=== PATIENT | female | born 1965 | race Caucasian/White ===

== ENCOUNTER 2022-08-18 16:14 | Emergency (ER) | payer OTHER ==
[~2022-08-18] VITALS: Ht 177.8 cm; Wt 87.0 kg
[2022-08-18] MEDS ORDERED: LEXA1TAB2 PO (16:36)
[2022-08-18] MEDS ORDERED: LOSA100T45 PO (16:36)
[2022-08-18] MEDS ORDERED: FAMC500T PO (16:36)
[2022-08-18] MEDS ORDERED: PERC5TAB12 PO (18:19)
[2022-08-18] MEDS ORDERED: OXYCODONE/APAP 5MG/325MG(HOME DOSE PACK) PO ONE (18:20)
[2022-08-18] MEDS ORDERED: PERCOCET 5MG/325MG TAB PO ONE (18:20)
[2022-08-18 19:05] VITALS: BP 141/74
[2022-08-20] MEDS ORDERED: LEXA1TAB2 PO (11:18)
[2022-08-20] MEDS ORDERED: ARIP1TAB4 PO (11:18)
== END 2022-08-18 19:48 | disposition home or self-care (01) ==
LOC: M ED 16:14
DX: S42.202A Unspecified fracture of upper end of left humerus, initial encounter for closed fracture (principal); W00.0XXA Fall on same level due to ice and snow, initial encounter; Y92.89 Other specified places as the place of occurrence of the external cause; Y93.89 Activity, other specified; I10 Essential (primary) hypertension; F17.200 Nicotine dependence, unspecified, uncomplicated; Z79.899 Other long term (current) drug therapy; Z88.2 Allergy status to sulfonamides

== ENCOUNTER 2022-08-21 10:23 | Day surgery (SDC) | payer OTHER ==
[~2022-08-21] VITALS: Ht 177.8 cm; Wt 80.9 kg
[~2022-08-21 10:23] MED LIST: ARIP1TAB4 PO; FAMC500T PO; LEXA1TAB2 PO; LOSA100T45 PO; PERC5TAB12 PO
[2022-08-21] MEDS ORDERED: LR 1,000 ML IV SCH ×2 (10:35→15:40)
[2022-08-21] MEDS ORDERED: LIDOCAINE 2% 100MG/5ML SDV (FOR ANES.) As Ordered ONE (11:02)
[2022-08-21] MEDS ORDERED: propofoL 200 MG/20 ML VIAL As Ordered ONE (11:02)
[2022-08-21] MEDS ORDERED: fentaNYL 100 MCG/2 ML INJECTION As Ordered ONE (11:02)
[2022-08-21] MEDS ORDERED: MIDAZOLAM INJ 2MG/2ML VIAL As Ordered ONE (11:02)
[2022-08-21] MEDS ORDERED: ROPIvacaine 0.5% 30ML VIAL PN ONE (12:35)
[2022-08-21] MEDS ORDERED: LIDOCAINE 1% SDV 5ML VIAL PN ONE (12:35)
[2022-08-21] MEDS: MIDAZOLAM INJ 2MG/2ML VIAL IV PRN ×2 (12:51→12:57)
[2022-08-21] MEDS: fentaNYL 100 MCG/2 ML INJECTION IV PRN ×2 (12:51→12:57)
[2022-08-21] MEDS ORDERED: PERC5TAB12 PO (12:59)
[2022-08-21] MEDS ORDERED: ceFAZolin 2 GM/D5W 50 ML IV BAG As Ordered ONE (13:33)
[2022-08-21] MEDS ORDERED: ONDANSETRON 4MG 2ML VIAL As Ordered ONE (13:42)
[2022-08-21] MEDS ORDERED: ACETAMINOPHEN 1000MG 100ML IV BAG As Ordered ONE (13:44)
[2022-08-21] MEDS ORDERED: ePHEDrine SULFATE 25 MG/5 ML(5MG/ML) SYRINGE As Ordered ONE (13:59)
[2022-08-21] MEDS ORDERED: ONDANSETRON 4MG 2ML VIAL IV PRN (15:40)
[2022-08-21] MEDS ORDERED: MORPHINE 2 MG/ML 1ML VIAL IV PRN (15:40)
[2022-08-21] MEDS ORDERED: oxyCODONE 5MG TAB PO PRN (15:40)
[2022-08-21] MEDS ORDERED: fentaNYL 100 MCG/2 ML INJECTION IV PRN (15:40)
[2022-08-21] MEDS ORDERED: METOCLOPRAMIDE INJ 10MG/2ML VIAL IV PRN (15:50)
[2022-08-21 17:45] VITALS: BP 129/75
== END 2022-08-21 18:10 | disposition home or self-care (01) ==
LOC: M SDC 10:23
PROVIDERS: ATTEND Orthopaedic Surgery
DX: S42.202A Unspecified fracture of upper end of left humerus, initial encounter for closed fracture (principal); W19.XXXA Unspecified fall, initial encounter; I10 Essential (primary) hypertension; F41.9 Anxiety disorder, unspecified; F32.A Depression, unspecified; F17.210 Nicotine dependence, cigarettes, uncomplicated; Z88.2 Allergy status to sulfonamides; Z79.899 Other long term (current) drug therapy
CPT/HCPCS: 23615; 76000; 87635; 93005; C1713; C1762; J0690; J1100; J2250; J2405; J2765; J3010

== ENCOUNTER → 2022-09-10 | Outpatient (CLI) | payer OTHER | LOC: M SOG 09:59 | PROVIDERS: ATTEND Orthopaedic Surgery | DX: S42.211A Unspecified displaced fracture of surgical neck of right humerus, initial encounter for closed fracture (principal); W18.30XA Fall on same level, unspecified, initial encounter; Y92.009 Unspecified place in unspecified non-institutional (private) residence as the place of occurrence of the external cause ==